=== PATIENT | male | born 1985 | race Caucasian/White ===

== ENCOUNTER 2020-06-22 02:38 | Emergency (ER) | payer MEDICAID ==
[~2020-06-22] VITALS: Ht 175.3 cm; Wt 84.0 kg
[2020-06-22] MEDS ORDERED: LIDOCAINE HCL/PF 1% 10 MG/ML 5ML VIAL IJ ONE (04:15)
[2020-06-22] MEDS ORDERED: ACETAMINOPHEN 325MG TABLET PO ONE (04:15)
[2020-06-22] MEDS ORDERED: BACITRACIN ZINC OINT UDPKT TOP ONE (04:15)
[2020-06-22] MEDS ORDERED: HYDROCODONE/ACETAMINOPHEN 5/325MG TABLET PO ONE (05:15)
[2020-06-22 05:20] VITALS: BP 123/81
== END 2020-06-22 06:08 | disposition home or self-care (01) ==
LOC: ER 02:38
DX: S01.81XA Laceration without foreign body of other part of head, initial encounter (principal); S00.01XA Abrasion of scalp, initial encounter; Y00.XXXA Assault by blunt object, initial encounter; Y93.89 Activity, other specified; Y92.89 Other specified places as the place of occurrence of the external cause
CPT/HCPCS: 12013; 70450; 99284; J3490